=== PATIENT | male | born 1965 | race Caucasian/White ===

== ENCOUNTER 2017-01-27 11:43 | Emergency (ER) | payer MEDICAID ==
[~2017-01-27] VITALS: Ht 188 cm; Wt 120.0 kg
[2017-01-27 11:44] VITALS: BP 212/106; PULSE 110; RESP 20; TEMP 98.1; O2SAT 96
--- NOTE | 2017-01-27 11:50 | PD ---
Physical Exam Time Seen by Provider: 11:50 Narrative 51 y/o male here c/o painful skin lesion to left arm for the past few weeks. Vital signs reviewed. Seen at triage desk. Awaiting bed placement. Data Data Last Documented VS Vital Signs Date Time Temp Pulse Resp B/P (MAP) Pulse Ox O2 Delivery O2 Flow Rate FiO2 01/27/17 11:44 98.1 110 20 212/106 (141) 96 Room Air [facility] Medical Record Reviewed: Yes Supervised Visit with BIANCA: Nilson Saucedo Jan 27, 2017 11:50
--- NOTE | 2017-01-27 12:29 | PD ---
HPI . Left arm abscess Chief Complaint: Skin Problem Time Seen by Provider: 12:04 Travel History International Travel<30 days: No Contact w/Intl Traveler<30days: No Traveled to known affect area: No History of Present Illness HPI 51-year-old male presents to emergency department for evaluation of abscess on brachial aspect of left inner arm. Patient states he first noticed it approximately a week ago but it became painful last night. Patient denies any chest pain, shortness breath, fever, chills, malaise, abdominal pain, nausea, vomiting, diarrhea or lightheadedness. Patient denies any major medical history and does not take any daily medications. Patient denies any history of resistant bacteria or MRSA. PFSH Past Medical History Medical History: Denies Significant Hx Tetanus Vaccination: > 5 Years Influenza Vaccination: No Past Surgical History Surgical History: No Previous Surgery Social History Alcohol Use: Yes (weekends) Tobacco Use: Yes (1ppd) Substance Use: No Allergies-Medications (Allergen,Severity, Reaction): Coded Allergies: No Known Allergies (Unverified , 01/27/17) Reported Meds & Prescriptions Reported Meds & Active Scripts Active No Active Prescriptions or Reported Medications Review of Systems Except as stated in HPI: all other systems reviewed are Neg Neurologic: No: Paresthesia Hematologic/Lymphatic: No: Lymph Node Enlargement Physical Exam Narrative GENERAL: Well-nourished well-developed 51-year-old male in no acute distress SKIN: 2 x 2 centimeter fluctuation with erythema noted to brachial aspect of the left inner arm. HEAD: Atraumatic. Normocephalic. EYES: Pupils equal and round. No scleral icterus. No injection or drainage. ENT: No nasal bleeding or discharge. Mucous membranes pink and moist. NECK: Trachea midline. No JVD. CARDIOVASCULAR: Regular rate and rhythm. No murmur appreciated. Radial pulses palpated bilaterally. RESPIRATORY: No accessory muscle use. Clear to auscultation. Breath sounds equal bilaterally. MUSCULOSKELETAL: No obvious deformities. No clubbing. No cyanosis. No edema. NEUROLOGICAL: Awake and alert. No obvious cranial nerve deficits. Motor grossly within normal limits. Normal speech. PSYCHIATRIC: Appropriate mood and affect; insight and judgment normal. Data Data Last Documented VS Vital Signs Date Time Temp Pulse Resp B/P (MAP) Pulse Ox O2 Delivery O2 Flow Rate FiO2 01/27/17 11:44 98.1 110 20 212/106 (141) 96 Room Air Orders Orders Wound Culture And Gram Stain (01/27/17 12:49) Lidocaine 1% Inj (50 Ml) (Xylocaine 1% I (01/27/17 13:00) MDM Medical Decision Making Medical Screen Exam Complete: Yes Emergency Medical Condition: Yes Medical Record Reviewed: Yes Differential Diagnosis Differential diagnosis include but are not limited to cellulitis, abscess, infected bug bite, folliculitis Narrative Course 51-year-old male presents emergency department for evaluation of painful area of fluctuation and erythema to the brachial aspect of his left inner arm. I&D was performed. Please see my procedural narrative. Culture was obtained. Patient will be discharged home with prescription for Bactrim and instructions to return the emergency Department immediately with any signs or symptoms of worsening infection and to return in 2 days for wound recheck and to get the packing removed. Procedures Procedure Narrative INCISION AND DRAINAGE OF ABSCESS: The area was prepped and was sterilely draped. A subcutaneous wheal of 1% Xylocaine with a total number 5 mL was used to anesthetize the area properly. A number 11 scalpel was used to make a 0.75cm incision across the area of the abscess. The abscess was drained, complex loculations were broken down, and irrigated with normal saline. Cultures were obtained. Quarter inch iodoform packing was placed in the wound. Sterile dressing applied. Patient advised to have packing removed in two days. Diagnosis Primary Impression: Abscess of arm, left Additional Impression: Encounter for incision and drainage procedure Referrals: Primary Care Physician Patient Instructions: Abscess Incision and Drainage (DC), General Instructions Additional Instructions: [place] for worsening signs of infection which include fever, increased redness , increased warmth, purulent drainage, increased swelling or streaking. If any of these develop, please go to the nearest emergency room. Return to the emergency department in 2 days for wound recheck and to get the packing removed. Keep the cover dressing clean and dry. Take Bactrim as directed until entire anabiotic course complete. Med/Other Pt SpecificInfo: Prescription(s) given Scripts Sulfamethoxazole-Trimethoprim (Bactrim DS) 800-160 Mg Tab 1 TAB PO BID for Infection for 7 Days, #14 TAB 0 Refills Prov: Gloria Aguiar EDENILSON 01/27/17 Disposition: 01 DISCHARGE HOME Condition: Stable Gloria Aguiar Jan 27, 2017 12:29
[2017-01-27] MEDS ORDERED: LIDOCAINE HCL 1% 50 ML VIAL INFIL ONE (13:00)
[2017-01-27] MEDS ORDERED: BACT800T5 PO (13:01)
== END 2017-01-27 13:29 | disposition home or self-care (01) ==
LOC: NEPD 11:43
DX: L02.414 Cutaneous abscess of left upper limb (principal); F17.200 Nicotine dependence, unspecified, uncomplicated
CPT/HCPCS: 10061; 86403; 87070

== ENCOUNTER 2017-01-29 14:17 | Emergency (ER) | payer MEDICAID ==
[~2017-01-29] VITALS: Ht 188 cm; Wt 120.0 kg
[~2017-01-29 14:17] MED LIST: BACT800T5 PO
[2017-01-29 14:19] VITALS: BP 183/96; PULSE 94; RESP 16; TEMP 98.7; O2SAT 95
--- NOTE | 2017-01-29 16:00 | PD ---
HPI Chief Complaint: Wound/Suture/Staple Re-Check Time Seen by Provider: 15:06 Travel History International Travel<30 days: No Contact w/Intl Traveler<30days: No Traveled to known affect area: No History of Present Illness HPI 58-year-old male presents emergency department for packing removal of an abscess to his left upper cavity. Patient was treated 2 days ago emergency department where he had incision and drainage of an abscess. He was placed on Bactrim. He reports compliance with the antibiotic. He reports the draining is very minimal from the arm. He reports decreased pain. He denies fever or chills. PFS Past Medical History Medical History: Denies Significant Hx Social History Alcohol Use: Yes (weekends) Tobacco Use: Yes (1ppd) Substance Use: No Allergies-Medications (Allergen,Severity, Reaction): Coded Allergies: No Known Allergies (Unverified , 01/29/17) Reported Meds & Prescriptions Reported Meds & Active Scripts Active Bactrim DS (Sulfamethoxazole-Trimethoprim) 800-160 Mg Tab 1 Tab PO BID 7 Days Review of Systems Except as stated in HPI: all other systems reviewed are Neg General / Constitutional: No: Fever Physical Exam Narrative GENERAL: Well-nourished, well-developed patient. SKIN: Focused skin assessment warm/dry. Healing abscess to the left upper extremity with packing in place. Mild surrounding erythema without lymphangitis. HEAD: Normocephalic. EYES: No scleral icterus. No injection or drainage. CARDIOVASCULAR: Regular rate and rhythm without murmurs, gallops, or rubs. RESPIRATORY: Breath sounds equal bilaterally. No accessory muscle use. MUSCULOSKELETAL: No cyanosis, or edema. Data Data Last Documented VS Vital Signs Date Time Temp Pulse Resp B/P (MAP) Pulse Ox O2 Delivery O2 Flow Rate FiO2 01/29/17 14:19 98.7 94 16 183/96 (125) 95 Room Air MDM Medical Decision Making Medical Screen Exam Complete: Yes Emergency Medical Condition: Yes Differential Diagnosis Packing removal, abscess left upper extremity, cellulitis Narrative Course 51-year-old male here for packing removal to an abscess to left upper extremity. Packing was removed. The wound appears to be healing. Patient instructed to continue his antibiotics as prescribed. Follow-up his PCP. Patient verbalizes understanding and agrees to plan. Diagnosis Primary Impression: Abscess of arm, left Referrals: Primary Care Physician Additional Instructions: Take the antibiotics as prescribed. Cleanse the abscess daily with soap and water. Apply dry dressing. Follow-up with her PCP. Disposition: 01 DISCHARGE HOME Condition: Stable Tali Hood Jan 29, 2017 16:00
== END 2017-01-29 16:08 | disposition home or self-care (01) ==
LOC: NEPK 14:17
DX: Z51.89 Encounter for other specified aftercare (principal); L02.414 Cutaneous abscess of left upper limb; F17.200 Nicotine dependence, unspecified, uncomplicated
CPT/HCPCS: 99281